=== PATIENT | male | born 1960 | race Caucasian/White ===

== ENCOUNTER 2018-01-19 11:07 | Emergency (ER) | payer MEDICAID ==
[2018-01-19 11:17] VITALS: BP 152/92
--- NOTE | 2018-01-19 12:18 | XRAY Report ---
Reason: left hip pain Procedure Date: 01/19/2018 Accession Number: [id number] / [id number] Procedure: XR - Hip w/Pelvis 2-3V LT CPT Code: FULL RESULT: EXAM: LEFT HIP AND PELVIS RADIOGRAPHY EXAM DATE: 01/19/2018 12:07 PM. HISTORY: Left hip pain. COMPARISONS: None. TECHNIQUE: 1 view of the pelvis and 1 view of the left hip. FINDINGS: Bones: No fracture or bone lesion. Joints: Left greater than right osteoarthritic degenerative change with joint space narrowing, sclerosis, and subchondral cyst formation. No dislocation. Soft Tissues: Unremarkable. IMPRESSION: Severe left hip degenerative change with mild to moderate right hip degenerative change. [facility]
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
== END 2018-01-19 12:50 | disposition home or self-care (01) ==
LOC: ED 11:07
DX: M16.12 Unilateral primary osteoarthritis, left hip (principal)
CPT/HCPCS: 99282; 99283

== ENCOUNTER 2019-02-14 12:28 | Emergency (ER) | payer MEDICAID ==
--- NOTE | 2019-02-14 13:51 | ED Physician Documentation ---
History of Present Illness - Stated complaint Stated Complaint: RIB PX - Chief complaint Chief Complaint: General - History obtained from History obtained from: Patient - History of Present Illness Timing: Chronic (About 2 months ago he was working under his trailer, he felt a pop near the scapula on the right and has been had persistent pain especially in the morning ever since then. He saw his chiropractor who diagnosed him with a dislocated rib. He tried an unknown muscle relaxer without relief.) Review of Systems Constitutional: denies: Fever, Chills Cardiac: denies: Chest pain / pressure, Palpitations Respiratory: denies: Dyspnea, Cough PD PAST MEDICAL HISTORY - Past Medical History Cardiovascular: None Respiratory: None Neuro: None Endocrine/Autoimmune: None GI: None : None HEENT: None Musculoskeletal: None Derm: None - Past Surgical History Past Surgical History: Yes General: Appendectomy - Present Medications Home Medications: Ambulatory Orders Medication Instructions Recorded Confirmed Hydrocodone/Acetaminophen 1 - 2 each PO Q6H PRN #14 tablet 02/14/19 [Hydrocodon-Acetaminophen 5-325] Ibuprofen [Motrin] 800 mg PO Q8H PRN #30 tablet 02/14/19 - Allergies Allergies/Adverse Reactions: Allergies Allergy/AdvReac Type Severity Reaction Status Date / Time No Known Drug Allergies Allergy Verified 02/14/19 12:35 - Social History Does the pt smoke?: Yes Smoking Status: Current every day smoker Does the pt drink ETOH?: Yes Does the pt have substance abuse?: No - Immunizations Immunizations are current?: Yes Immunizations: TDAP >10years/unknown - POLST Patient has POLST: No PD ED PE NORMAL - Vitals Vital signs reviewed: Yes - General General: Alert and oriented X 3, No acute distress - Cardiac Cardiac: RRR, No murmur - Respiratory Respiratory: No respiratory distress, Clear bilaterally - Abdomen Abdomen: Non tender - Extremities Extremities: Other (Mild muscular tenderness to the parathoracic musculature just medial to the upper right scapula) - Neuro Neuro: Alert and oriented X 3, Normal speech Results - Vitals Vitals: Vital Signs - 24 hr 02/14/19 12:33 Temperature 36.7 C Heart Rate 88 Respiratory 18 Rate Blood Pressure 140/107 H O2 Saturation 97 Oxygen O2 Source Room air Departure - Departure Disposition: 01 Home, Self Care Clinical Impression: Rhomboid muscle strain Qualifiers: Encounter type: initial encounter Qualified Code(s): S29.012A - Strain of muscle and tendon of back wall of thorax, initial encounter Condition: Good Record reviewed to determine appropriate education?: Yes Instructions: ED Spasm Muscle Prescriptions: Hydrocodone/Acetaminophen [Hydrocodon-Acetaminophen 5-325] 1 - 2 each PO Q6H PRN #14 tablet PRN Reason: pain Ibuprofen [Motrin] 800 mg PO Q8H PRN #30 tablet PRN Reason: PAIN &/OR FEVER Comments: Call your doctor to arrange a follow-up appointment, make the next available appointment. In the interim, return anytime if worse or if new symptoms develop. Your blood pressure was elevated today on check into the emergency department. This does not mean that you have hypertension, it is a common phenomenon to come to the emergency department and have elevated blood pressure. I recommend that you see your primary care physician within the week to have it rechecked when you are feeling better.
--- NOTE | 2019-02-14 14:23 | XRAY Report ---
Reason: post rib pain Procedure Date: 02/14/2019 Accession Number: [id number] / [id number] Procedure: XR - Ribs w/PA Chest RT CPT Code: Final Report FULL RESULT: EXAM: RIGHT RIB RADIOGRAPHY EXAM DATE: 02/14/2019 01:59 PM. CLINICAL HISTORY: Post rib pain. COMPARISON: None. TECHNIQUE: 1 view of the chest and 2 views of the ribs. FINDINGS: Bones: Normal. No fracture or bone lesion. Lungs: No focal opacities. No pneumothorax. No pleural effusions. Mediastinum: Heart and mediastinal contours are unremarkable. Other: None. IMPRESSION: No acute displaced rib fracture. No pneumothorax. [facility]
[2019-02-14 14:36] VITALS: BP 138/98
== END 2019-02-14 14:34 | disposition home or self-care (01) ==
LOC: ED 12:28
DX: S29.012A Strain of muscle and tendon of back wall of thorax, initial encounter (principal); X50.9XXA Other and unspecified overexertion or strenuous movements or postures, initial encounter; Y93.89 Activity, other specified; Y92.028 Other place in mobile home as the place of occurrence of the external cause; R03.0 Elevated blood-pressure reading, without diagnosis of hypertension; F17.200 Nicotine dependence, unspecified, uncomplicated
CPT/HCPCS: 99283; 99284